=== PATIENT | female | born 1970 | race Caucasian/White ===

== ENCOUNTER 2018-03-12 21:56 | Emergency (ER) | payer SELFPAY ==
[~2018-03-12 21:56] MED LIST: Sodium Chloride Irrig Solution 250 ML BOT ONE
[2018-03-12] MEDS ORDERED: Adacel (T-DAP) 0.5 ML VIAL ONE (22:26)
[2018-03-12] MEDS ORDERED: Ketorolac Tromethamine 30 MG/ML VIAL ONE (22:26)
[2018-03-12] MEDS ORDERED: Amoxicillin/Potassium Clav 875 MG TAB ONE (22:39)
--- NOTE | 2018-03-12 22:43 | RAD ---
THREE VIEWS LEFT HAND 03/12/18 HISTORY: Dog bite on hand and wrist. Three views left hand obtained. Images demonstrate extensive soft tissue injury along the lateral ant erior aspect of the left wrist. No evidence of underlying distal radial fractures or bony lesions seen. There is an area of radiolucency in the scaphoid. Whether this is related to the patient's recent dog bite or represents an old or nonrelated fracture, I cannot determine. IMPRESSION: Area of lucency in the region of the scaphoid. This may represent a fracture; however, whether this i s related to the patient's dog bite or is from other trauma, I cannot determine. No other left hand f racture seen. POS: [facility]
[2018-03-12] MEDS ORDERED: Lidocaine 1% 20 ML MDV ONE (22:49)
[2018-03-12] MEDS ORDERED: Triple Antibiotic Oint 1 GM Packet ONE (23:07)
== END 2018-03-12 23:30 | disposition home or self-care (01) ==
LOC: MADERS 21:56
DX: S61.532A Puncture wound without foreign body of left wrist, initial encounter (principal); W54.0XXA Bitten by dog, initial encounter
CPT/HCPCS: 12001; 90471; 90715; 96372; J1885; J2001